=== PATIENT | male | born 1945 | race Caucasian/White ===

== ENCOUNTER 2017-03-18 00:10 | Inpatient (IN) | payer BC, MEDICARE ==
[2017-03-18] MEDS ORDERED: fentaNYL Citrate/PF 2,000 MCG in Sodium Chloride 0.9% 60 ML IV SCH (00:45)
[2017-03-18 00:57] LABS: Actual Bicarbonate (HCO3a) 20.2 mEq/L (22-26); Base Excess (BEa) -7.9 mEq/L (0 (+/-) 2.5); CO2 Tension 54.6 mmHg (35.0-45.0); Hematocrit-ABG 31.9 % (42.0-52.0); Hemoglobin (Hb) 9.4 g/dL (14.0-18.0); O2 Tension (PaO2) 297.3 mmHg (80.0-100.0)
[2017-03-18 00:58] LABS: Analyzer IN Cardio ER; Puncture Site RRA; pH, Arterial 7.19 (7.35-7.45)
[2017-03-18] MEDS ORDERED: Ondansetron HCl/PF 4 MG/2 ML Vial IVP PRN ×2 (02:41→03:59)
[2017-03-18] MEDS ORDERED: Ondansetron ODT 4 MG TAB SL PRN (02:41)
[2017-03-18] MEDS ORDERED: Sodium Chloride 0.9% 1,000 ML IV SCH (02:41)
[2017-03-18] MEDS: Norepinephrine 8 MG/250 ML BAG IVPB PRN ×5 (02:54→23:35)
[2017-03-18 02:59] LABS: Actual Bicarbonate (HCO3a) 18.4 mEq/L (22-26); Base Excess (BEa) -8.3 mEq/L (0 (+/-) 2.5); CO2 Tension 42.5 mmHg (35.0-45.0); Hematocrit-ABG 32.3 % (42.0-52.0); Hemoglobin (Hb) 9.5 g/dL (14.0-18.0); O2 Tension (PaO2) 100.6 mmHg (80.0-100.0)
[2017-03-18 03:03] LABS: Puncture Site RR; pH, Arterial 7.25 (7.35-7.45)
[2017-03-18 03:04] LABS: ALV-art Gradient 206.275 (0-20)
[2017-03-18] MEDS ORDERED: Acetaminophen 650 MG Suppository PR PRN (03:59)
[2017-03-18] MEDS ORDERED: hydrALAZINE 20 MG/ML VIAL SLOW IVP PRN (03:59)
[2017-03-18] MEDS ORDERED: cloNIDine 0.1 MG TAB PO PRN (03:59)
[2017-03-18] MEDS ORDERED: Ondansetron ODT 4 MG TAB PO PRN (03:59)
[2017-03-18] MEDS: Sodium Chloride 0.9% 1,000 ML IV SCH ×3 (05:29→19:36)
--- NOTE | 2017-03-18 06:05 | HP ---
DATE OF ADMISSION: 03/18/2017 PRIMARY CARE PROVIDER: Suze Foster M.D. CHIEF COMPLAINT: Cardiac arrest. HISTORY OF PRESENT ILLNESS: This is a 71-year-old male who presents to [facility] Emergency Department after apparently sustaining cardiac arrest at home. History is o btained after review of electronic medical record from the emergency room, discussions with the emerg ency room attending and family member reports. The patient apparently was noted with confusion and a ltered mentation by family members, last seen normal approximately 12:00 p.m. on 03/17/2017. The pat freddy's family noted the patient was lethargic and became unresponsive approximately 2100 hours on . EMS personnel were notified; at which point, the patient was found in the driveway unrespon sive with asystole. CPR was initiated. At which point, the patient went into pulseless electrical a ctivity then ventricular fibrillation, defibrillated in the field, intubated and given 3 cycles of ep inephrine and 3 cycles of sodium bicarbonate with return of spontaneous circulation. The patient req uired Levophed infusion after failed dopamine. Initial temperature in the emergency at 91 degrees Fa hrenheit. The patient received IV fentanyl infusion as well as continuation of Levophed infusion. PAST MEDICAL HISTORY: 1. Chronic pain syndrome, on chronic narcotic therapy. 2. Cervical lymphadenopathy. 3. History of chronic obstructive pulmonary disease. 4. Tobacco abuse. 5. Tonsillar neoplasm. 6. History of Helicobacter pylori. 7. Iron deficiency anemia. 8. Insomnia. 9. Chronic fatigue syndrome. 10. History of sleep apnea. 11. Gastroesophageal reflux disease. 12. Gastroparesis, unclear etiology. 13. Benign prostatic hyperplasia. 14. Chronic back pain. 15. Rheumatoid arthritis. PAST SURGICAL HISTORY: 1. Status post left wrist surgery. 2. Status post cervical spine surgery. 3. Status post spinal surgery. 4. Status post hernia repair. CURRENT MEDICATIONS: Based on previous admissions in 2016: 1. Orencia 125 mg subcutaneously every 7 days. 2. Nexium 20 mg 1 tab p.o. daily. 3. Gabapentin 300 mg 1 tab p.o. at bedtime. 4. Arava 20 mg p.o. daily. 5. Methylphenidate 10 mg p.o. b.i.d. 6. Reglan 10 mg p.o. t.i.d. 7. Remeron 15 mg p.o. at bedtime. 8. OxyContin 30 mg p.o. b.i.d. ALLERGIES: IODINE and CONTRAST MEDIA. FAMILY HISTORY: No inheritable diseases per report. SOCIAL HISTORY: The patient resides in [place], [place]. . Smokes up to half a pack to 1 pac k of cigarettes daily. No illicit drug use. No alcohol use. REVIEW OF SYSTEMS: Unobtainable as patient is on current mechanical ventilation and obtunded. PHYSICAL EXAMINATION: VITAL SIGNS: At the time of admission, blood pressure 80/51, pulse 96, respiratory rate 12, temperat ure 96.6 degrees rectally, and O2 saturation 100% on 40% FiO2. GENERAL APPEARANCE: This is a 71-year-old male on current mechanical ventilation, unrespon sive. HEENT: Pupils are pinpoint and minimally reactive to light and accommodation. No scleral icterus, n o conjunctival injection. Nares patent with nasogastric tube in place. OP with ET tube in place. NECK: Supple, no cervical adenopathy, no thyromegaly, no carotid bruits, no JVD appreciated. CHEST: Diminished breath sounds in the bases bilaterally. CARDIOVASCULAR: S1, S2 with distant heart sounds. ABDOMEN: Rounded with diminished bowel sounds in all four quadrants. No palpable mass. No rebound or guarding noted. EXTREMITIES: Warm and dry with fair turgor. No clubbing, cyanosis or asymmetric edema appreciated. Pulses palpable distally at the dorsalis pedis, posterior tibial, and popliteal arteries bilaterally . Capillary refill less than 2 seconds. NEUROLOGIC: Obtunded, unresponsive to painful stimuli on current sedation with fentanyl. GENITOURINARY: Blanton catheter in place with clear urine. PERTINENT LABORATORY DATA AND X-RAY FINDINGS: Sodium 138, potassium 5.0, chloride 104, CO2 of 20, BU N 17, creatinine 2.11, estimated GFR of 31, glucose 119, lactic acid level 5.2, calcium 8.0, AST 100, ALT 59, alkaline phosphatase 81, total CK 1486, troponin I ranged between 0.81 to 2.46. BNP 200. A lbumin 2.9. CBC showed a white blood cell count of 6.9, hemoglobin 7.9, hematocrit 27.4, platelet co unt 137 with 80% neutrophils. PT 15.8, INR 1.2, PTT of 40. ABG at 02:50 a.m. on 03/18/2017, showed a pH of 7.25, pCO2 of 42.5, pO2 of 100.6, bicarbonate 18.4, O2 saturation 97% on 50% FiO2. Urine manuela g screen dated 03/17/2017, positive for oxycodone. Plasma alcohol level less than 10. Portable chest x-ray dated 03/17/2017 showed endotracheal tube in appropriate positioning. Chronic c hanges in bilateral lung richards. CT imaging of the brain without contrast dated 03/18/2017 showed no acute intracranial process. EKG dated 03/18/2017 by my interpretation shows sinus mechanism with he art rates in the 90s. Normal R-wave progression noted in the precordial leads. Normal axis. No acu te ST-T wave changes appreciated. ASSESSMENT AND PLAN: 1. Cardiac arrest with return of spontaneous circulation. The patient will be admitted to the Criti joe Care Unit. We will continue general supportive measures. Consult Cardiology Service in the a.m. Monitor for evidence of arrhythmia. Continue serial troponin I evaluation. Consider 2D transthora cic echocardiogram when stabilizing. 2. Acute hypoxemic hypercapnic respiratory failure secondary to #1. Continue mechanical ventilation as stated previously. Consult Pulmonology Service for further ventilation management. 3. Hypotension. Suspect secondarily to #1. Continue Levophed infusion to maintain systolic greater than or equal to 90. 4. Acute kidney injury. Continue intravenous normal saline at 100 mL per hour. Avoid nephrotoxic a gents and contrast media. 5. Lactic acidosis. Suspect secondarily to #1. Repeat serial lactic acid level until stabilizing. 6. Transaminitis. Suspect hepatic shock after cardiac arrest. Continue to monitor serial LFT trend . 7. Rhabdomyolysis. Suspect secondary to CPR after cardiac arrest. Continue intravenous fluids and repeat total CK. 8. Acute on chronic normocytic anemia. Questionable gastrointestinal blood loss. Check stool guaia c. Continue serial H and H monitoring. Continue Pepcid 20 mg IV q.12 hours. 9. Prophylaxis. Sequential compression devices while in bed. Pepcid 20 mg IV q.12 hours. CCU elect rolyte replacement protocol. General sedation protocol. 10. Code status is FULL. Surrogate medical decision maker is patient's spouse.
[2017-03-18 06:11] LABS: Hemoglobin 9.3 g/dL (14.0-18.0); Platelet Count 181 thou/uL (130-400)
[2017-03-18 06:33] LABS: Lactic Acid 2.7 mmol/L (0.5-2.2)
[2017-03-18 07:15] LABS: Actual Bicarbonate (HCO3a) 16.8 mEq/L (22-26); Base Excess (BEa) -7.8 mEq/L (0 (+/-) 2.5); CO2 Tension 30.4 mmHg (35.0-45.0); Hematocrit-ABG 26.8 % (42.0-52.0); Hemoglobin (Hb) 7.5 g/dL (14.0-18.0); O2 Tension (PaO2) 83.1 mmHg (80.0-100.0); pH, Arterial 7.36 (7.35-7.45)
[2017-03-18 07:45] LABS: Puncture Site LRA
--- NOTE | 2017-03-18 08:18 | CT ---
PRELIMINARY REPORT/[facility]/EMERGENCY AFTER HOURS PROCEDURE: EXAM: CT Head Without Intravenous Contrast CLINICAL HISTORY: 71 years old, male; Signs and symptoms; Altered mental status/memory loss; Confusion or disorientatio n; Patient HX: AMS, rosc TECHNIQUE: Axial computed tomography images of the head/brain without intravenous contrast. COMPARISON: No relevant prior studies available. FINDINGS: Mildly limited due to streak artifact Brain: Mild volume loss. No hemorrhage. Mild white matter disease. No edema. Ventricles: Unremarkable. No ventriculomegaly. Bones/joints: Unremarkable. No acute fracture. Soft tissues: Unremarkable. Sinuses: Minimal mucosal thickening No acute sinusitis. Mastoid air cells: Question partial opacification of the right mastoid cavity versus hypoplasia. IMPRESSION: Question partial opacification of the right mastoid cavity. Correlate clinically No intracranial hemorrhage.Please see discussion above. Thank you for allowing us to participate in the care of your patient. Dictated and Authenticated by: Chaz Crews MD 03/18/2017 2:06 AM Central Time ([place] & [place]) FINAL REPORT CT BRAIN WITHOUT CONTRAST: COMPARISON: 12/02/2016 I agree with the preliminary report given by Dr. Chaz Crews of [facility]. No significant interval change is seen. POS: [facility]
[2017-03-18] MEDS ORDERED: Famotidine/PF 20 mg/2ml Vial SLOW IVP SCH ×2 (09:00)
[2017-03-18 09:31] LABS: Lactic Acid 2.6 mmol/L (0.5-2.2)
--- NOTE | 2017-03-18 10:40 | PDOC.PN ---
- Subjective Encounter Start Date: 03/18/17 Encounter Start Time: 10:38 Subjective: intubated,unresponsive - Objective Resuscitation Status: Resuscitation Status FULL:Full Resuscitation MAR Reviewed: Yes Vital Signs & Weight: Vital Signs (12 hours) Temp Pulse Resp BP BP Pulse Ox 03/18/17 10:00 47 H 03/18/17 09:00 98 F 03/18/17 08:00 98 F 90 37 H 100 03/18/17 07:00 98 F 03/18/17 06:59 101 H 131/79 03/18/17 03:55 97.9 F 97 16 100 03/18/17 03:05 97 03/18/17 03:00 97.9 F 03/18/17 02:57 97.9 F 96 24 H 111/77 98 Most Recent Monitor Data Heart Rate from ECG 92 NIBP 116/72 NIBP BP-Mean 84 Respiration from ECG 48 SpO2 100 I&O: 03/17/17 03/18/17 03/19/17 06:59 06:59 06:59 Intake Total 938 Output Total 15 35 Balance 923 -35 Result Diagrams: 03/18/17 06:00 Radiology Reviewed by me: Yes (cxr- ET tube, no infiltrate) EKG Reviewed by me: Yes (RSR< no STT abn) Phys Exam - Physical Examination Neck: no JVD diffuse rhonchi, coarse BS Cardiovascular: RRR, no significant murmur Gastrointestinal: soft, non-tender, positive bowel sounds Musculoskeletal: no edema Dx/Plan (1) Cardiac arrest Code(s): I46.9 - CARDIAC ARREST, CAUSE UNSPECIFIED Status: Acute (2) Encephalopathy Code(s): G93.40 - ENCEPHALOPATHY, UNSPECIFIED Status: Acute (3) Acute respiratory failure with hypercapnia Code(s): J96.02 - ACUTE RESPIRATORY FAILURE WITH HYPERCAPNIA Status: Acute (4) Acute renal failure Status: Acute (5) Lactic acidosis Code(s): E87.2 - ACIDOSIS Status: Acute (6) COPD (chronic obstructive pulmonary disease) Status: Acute (7) Chronic pain syndrome Code(s): G89.4 - CHRONIC PAIN SYNDROME Status: Acute - Plan on vent, pulmonollogy in consult -: nebs, fluids, pressure support * .
[2017-03-18] MEDS ORDERED: Diphenoxylate HCl/Atropine Tablet PO PRN (11:57)
[2017-03-18] MEDS ORDERED: Sodium Chloride 0.9% 500 ML IV SCH (12:00)
[2017-03-18 12:14] LABS: Hemoglobin 9.1 g/dL (14.0-18.0); Platelet Count 167 thou/uL (130-400)
[2017-03-18 12:57] VITALS: BMI 24.8
[2017-03-18] MEDS ORDERED: Albumin 5% 500 ML ONE (13:22)
--- NOTE | 2017-03-18 14:06 | CON ---
DATE OF CONSULTATION: 03/18/2017 CRITICAL CARE TIME: 60 minutes. REASON FOR CONSULTATION: Out of hospital arrest. HISTORY OF PRESENT ILLNESS: Mr. Small is a 71-year-old gentleman who recently had out of hospital arrest. The history was obtained from his family as well as review of the ER record as well as discu ssion with Dr. Swanson and review of EMS. Apparently Mr. Small was in normal state of health yeste rday. He was sleeping during the day. He had multiple comorbidities. His states she checked o n him at 5 p.m. and he was difficult to arouse. She then notified the daughter. She checked back on him at 7 p.m. and was still not arousable. The called Dr. Suze Foster who recommended she kartik ck his pupils. The states the pupils were fixed and small. EMS was then summoned. There was s ome notation that CPR began on the scene after noting asystole. The family states that CPR was not d one until he was in the ambulance. The initial rhythm strip is unknown, but felt to be asystole. He then developed respiratory distress and CPR ensued. There was also question of tracheal versus esop hageal intubation. Upon arrival to the emergency room, he did require continued CPR in addition to Levophed. His EKG di d not suggest an acute infarct. On my arrival, he is markedly hypotensive in the 70s. He was placed back on the norepinephrine. He also has blood from his NG tube in addition to melena. He has a history of diverticulitis. PAST MEDICAL HISTORY: COPD, tobacco abuse, iron deficiency anemia, sleep apnea, acid reflux, BPH, ch ronic back pain, osteoarthritis, cervical lymphadenopathy and rheumatoid arthritis. PAST SURGICAL HISTORY: Wrist surgery. MEDICATIONS: Include gabapentin, Nexium, Orencia, Arava, Reglan, Remeron, OxyContin. ALLERGIES: IODINE. FAMILY HISTORY: Negative. SOCIAL HISTORY: No current alcohol use. He is currently . He does smoke 1 pack per day. REVIEW OF SYSTEMS: Unobtainable. PHYSICAL EXAMINATION: VITAL SIGNS: Blood pressure 97/62, pulse 103, respirations 45 on ventilator. GENERAL: Patient is not awakened to stimuli. He is over-breathing in the vent. NEUROLOGIC: The patient is alert and oriented times 3 with no focal neurologic deficits. HEENT: Sclerae without icterus. Mouth has moist mucous membranes with normal pallor. NECK: No JVD. Carotid upstroke brisk. No bruits bilaterally. LUNGS: Clear to auscultation with unlabored respirations. BACK: No scoliosis or kyphosis. CARDIAC: Regular rate and rhythm with normal S1 and S2. No S3 or S4 noted. No significant rubs, mu rmurs, thrills, or gallops noted throughout the precordium. PMI is not displaced. There is no saurabh ternal heave. ABDOMEN: Soft, nontender, nondistended. No peritoneal signs present. No hepatosplenomegaly. No abnormal striae. EXTREMITIES: 2+ femoral and 2+ dorsalis pedis pulses. No cyanosis, clubbing, or edema. SKIN: No gross abnormalities. PERTINENT LABS: CO2 20, creatinine 2.1. CK-MB of 46, troponin 2.4, BNP of 199. TSH 2.9. Hemoglobin 9.1. EKG normal sinus rhythm with nonspecific ST-T wave changes, no acute changes noted. IMPRESSION: 1. Out of hospital arrest. 2. Anoxic brain injury. 3. Acute renal insufficiency. 4. Melena and hematochezia. RECOMMENDATIONS: I had a long discussion with the family about his current cardiac status. His hear t rate appears stable. He is markedly hypotensive and may be related to recent anoxic brain injury. His echo is pending. GI has been consulted. At this point, would recommend review of the echo. I would not recommend aggressive CV approach given likely marked anoxic brain injury. Family agrees. They are not interested on any heroic measures. No further compressions per the family's request. Ne urology has been consulted. EEG has also been recommended. I did state his prognosis is extremely p oor based on the above.
[2017-03-18] MEDS: Acetaminophen 650 MG in Premix Bag 1 BAG IVPB PRN (15:31)
[2017-03-18 16:03] LABS: Hemoglobin 8.7 g/dL (14.0-18.0); Platelet Count 148 thou/uL (130-400)
[2017-03-18 16:05] LABS: Platelet Count 148 thou/uL (130-400)
[2017-03-18] MEDS: Cefepime 1 GM, Admixture Fee 1 EACH in Sterile Water 10 ML SLOW IVP SCH (16:07)
[2017-03-18 16:20] LABS: Fibrinogen 640 mg/dL (253-463); INR-International Normal Ratio 1.5; Prothrombin Time 18.8 SEC (12.0-14.7)
[2017-03-18 16:26] LABS: ALT (SGPT) 322 U/L (8-55); AST (SGOT) 586 U/L (5-34); Albumin 3.2 g/dL (3.4-4.8); Alkaline Phosphatase 69 U/L (40-150); Anion Gap 18 mmol/L (10-20); BUN (Urea Nitrogen) 45 mg/dL (8.4-25.7); Bilirubin, Total 0.6 mg/dL (0.2-1.2); Calc. Creatinine Clearance 22 mL/min (70-130); Calcium 7.2 mg/dL (7.8-10.44); Carbon Dioxide 15 mmol/L (23-31); Chloride 109 mmol/L (98-107); Estimated GFR-MDRD 17; Globulin 2.3 g/dL (2.4-3.5); Glucose 100 mg/dL (83-110); Potassium 4.4 mmol/L (3.5-5.1); Protein, Total 5.5 g/dL (5.8-8.1); Sodium 138 mmol/L (136-145)
[2017-03-18 16:48] LABS: D-Dimer Test Greater than 20.00 *mcg/mL (0.27-0.43)
[2017-03-18 16:58] LABS: FSP-Qualitative ABNORMAL (Normal); FSP-Semiquantitative >=40 & <80 mcg/mL (Less than 5)
--- NOTE | 2017-03-18 18:15 | CON ---
DATE OF CONSULTATION: 03/18/2017 HISTORY OF PRESENT ILLNESS: Mr. Gonsalo Small is a 71-year-old gentleman, intubated on the vent, sta tus post PEA, CPR done in [place] and brought to [facility]. Extensive history was obtained from talking to his who is at the bedside. I reviewed his entire medical records extensively with his and family members, three daughters. Last time, patient e ncountered any verbal communication with his was 12:30 p.m. yesterday. He was home at 5 o'clock and apparently fallen asleep, did not wake him up, did not do any additional talking. At 7 o'clock she came back again he was basically sleeping, shallow respiration, contacted primary care physician who told to call EMS. Upon arrival, apparently in the ambulance, he had pulseless electrical activit y. CPR was initiated. He was intubated and transferred to the [place] ER where apparently CPR in [facility] and transferred to [facility] here. I am told about 11 o'clock last night. He has been in the ICU since 2 o'clock in the morning. He normally smokes up to a pack a day, past history of 2-3 pack a day smoker. He has low flow O2 at home. He has nebulizer machine at home. He has avalos itation with activity, but does do walk in the yard. In the past, he was a construction safety consultant. He has had no recent history of any chest pain. He had recent CAT scan done of his head for headache , which is otherwise unremarkable. PAST MEDICAL HISTORY: Pertinent for: 1. COPD. 2. History of tonsillar cancer, status post radiation, status post surgery. 3. History of Clostridium difficile colitis in 2015, hospitalized at [facility]. Antibiotics related. 4. History of sleep apnea. 5. Diabetes. 6. Gastroparesis. 7. History of diverticulitis. 8. Chronic back pain. 9. BPH. 10. Hyperlipidemia. PAST SURGICAL HISTORY: Surgeries are multiple; left wrist surgery, neck surgery, spinal surgery, her abigail operation, endoscopy. SOCIAL/FAMILY HISTORY: History of previous alcohol abuse. 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 ALLERGIES: IODINE. MEDICATIONS: His list of medicine from home - OxyContin 30 b.i.d., Zofran, Remeron 15, Reglan 10, m ethylphenidate 10 twice a day, Arava 20 daily, gabapentin 300, Nexium, Orencia 125. REVIEW OF SYSTEMS: Otherwise unobtainable. PHYSICAL EXAMINATION: VITAL SIGNS: Pulse 89, blood pressure 110/73, sats are 100%, respirations are in the 50s. He is on no sedation. His I's and O's have been 942 in and 115 out. HEENT: Pupils are pinpoint. CHEST: Decreased breath sounds, no wheezing. CARDIAC: Normal S1, S2. No gallops. ABDOMEN: Soft. No masses. LABORATORY DATA AND X-RAY FINDINGS: His pO2 was 83, pCO2 30, pH 7.36, on a rate of 16, 40%, 600 tida l volume, decreased tidal volume to 500. His CK-MB is 46. Troponin is 2.45. BNP is 99. Chest x-ra y was normal. CT head was unremarkable. He is now on IV fluids 100 an hour. He is on Pepcid. We will start Lovenox, continue vent support. IMPRESSION: 1. Status post cardiopulmonary arrest. 2. Anoxic injury. 3. Rheumatoid arthritis. 4. Chronic obstructive pulmonary disease. 5. Sleep apnea. 6. History of tonsillar cancer. 7. Unknown GI problems with previous Clostridium difficile. PLAN: Neurology has been consulted. Continue vent support. I told the , we will give to assess the neurological status. If there is no improvement, prognosis would be poor. Otherwise, basic supportive care. We will follow. This is a 45 minute critical care time spent extensively with the patient at bedside , discussed with the patient and family.
[2017-03-18] MEDS: Pantoprazole 40 MG VIAL IVP SCH (20:08)
[2017-03-18] MEDS ORDERED: Cefepime 1 GM in Sodium Chloride 0.9% 100 ML IVPB SCH (21:00)
[2017-03-18] MEDS ORDERED: Enoxaparin Sodium 40 MG/0.4 ML SYRINGE SC SCH (21:00)
--- NOTE | 2017-03-18 23:39 | CON ---
DATE OF CONSULTATION: 03/18/2017 NEUROLOGY CONSULTATION IMPRESSION: Anoxic brain injury with burst suppression pattern suggesting a poor prognosis. PLAN: As per the family's wishes. Mr. Small is a 71-year-old gentleman with a past history of hyp erlipidemia, COPD, sleep apnea, anemia who had a cardiac arrest in his driveway. EMS was called and he was transported here after several efforts they did, regain a rhythm. The patient has remained on ventilatory support. He does breathe over the ventilator, the nurse reports some coughing secondary to the tube. He has failed to regain awareness. An EEG was done just prior to my examination, whic h showed evidence of a burst suppression pattern. PAST MEDICAL HISTORY: As listed above. ALLERGIES: IODINE. SOCIAL HISTORY: Unremarkable. FAMILY HISTORY: Unremarkable. REVIEW OF SYSTEMS: Not obtainable. PHYSICAL EXAMINATION: VITAL SIGNS: Pulse 106, blood pressure 118/66 with Levophed, respirations 44, he is orally intubated . HEENT: Pupils are pinpoint, nonreactive. Doll's head maneuver produced a conjugate deviation. He h as some spontaneous over mouth movements. EXTREMITIES: No spontaneous extremity movements were noted. CT scan of the brain was unremarkable. SUMMARY: This gentleman's prognosis appears poor. The family is trying to make a decision as to how long to maintain support. He has been made DNR. I agree with the care.
[2017-03-19] MEDS: Acetaminophen 650 MG in Premix Bag 1 BAG IVPB PRN ×2 (01:42→12:01)
[2017-03-19] MEDS: Cefepime 1 GM, Admixture Fee 1 EACH in Sterile Water 10 ML SLOW IVP SCH (03:26)
[2017-03-19] MEDS: Norepinephrine 8 MG/250 ML BAG IVPB PRN ×3 (03:32→13:37)
[2017-03-19] MEDS: Sodium Chloride 0.9% 1,000 ML IV SCH (03:32)
--- NOTE | 2017-03-19 08:34 | RAD ---
PORTABLE CHEST ONE VIEW: 03/19/2017 at 4:41 a.m. HISTORY: Respiratory failure. FINDINGS/IMPRESSION: Comparison is made with the exam of the previous day. Endotracheal and nasogastric tubes remain in place. The heart size is normal. The lungs are expande d without confluent areas of consolidation, pneumothorax, patricia pleural edema, or pleural effusions. POS: [facility]
[2017-03-19] MEDS ORDERED: Pantoprazole 40 MG VIAL IVP SCH (09:00)
[2017-03-19] MEDS ORDERED: FLU VACC TS2017-18 (>65YR) 0.5 ML SYRINGE IM ONE (09:00)
[2017-03-19] MEDS: Pantoprazole 40 MG VIAL IVP SCH (09:47)
--- NOTE | 2017-03-19 11:37 | PRG ---
DATE OF SERVICE: 03/19/2017 35 minutes critical care time. SUBJECTIVE: The patient remains intubated on mechanical ventilation. Family members at the bedside. PHYSICAL EXAMINATION: VITAL SIGNS: Temperature 100.0, pulse 99, blood pressure 122/66, respiratory rate 37, O2 sat 100%. Total intake for 24 hours 4159, output 3985. NEUROLOGIC: The patient cannot follow commands. He is areflexic from the neck downward. He still h as some spontaneous respirations. He will occasionally flutter his eyes open. His pupils are 1 mm u nreactive bilaterally. HEENT: Otherwise unremarkable, endotracheal tube in place. NECK: No JVD. LUNGS: Coarse rhonchi. CARDIOVASCULAR: S1 and S2, tachycardic. ABDOMEN: Soft, no hepatosplenomegaly. EXTREMITIES: No edema. His chest x-ray shows some mild hyperinflation, endotracheal tube is in proper position. LABORATORY DATA: Sodium 138, potassium 4.4, CO2 of 15, BUN 45, creatinine 3.5, glucose 100 that was obtained yesterday. ASSESSMENT: 1. Severe anoxic brain injury, status post cardiopulmonary arrest. 2. Rheumatoid arthritis. 3. History of chronic obstructive pulmonary disease. 4. Sleep apnea. 5. History of tonsillar cancer. PLAN: He apparently has burst suppression activity on his EEG and is not considered a good prognosti c factor for survival. The family seems fairly realistic and is probably going to withdraw care late r today. For the time being, we will make obtained the patient on mechanical ventilation, antibiotic s, and norepinephrine drip for hypotension, it is likely he looks prior quickly after those things ar e removed. I do not see any utility and checking lab test as the patient's prognosis for survival is dismal.
--- NOTE | 2017-03-19 13:42 | PDOC.PN ---
- Subjective Encounter Start Date: 03/19/17 Encounter Start Time: 09:00 Pt seen for followup re: cardiac arrest. Intubated, nonverbal. - Objective Resuscitation Status: Resuscitation Status DNR:Do Not Resuscitate MAR Reviewed: Yes Vital Signs & Weight: Vital Signs (12 hours) Temp Pulse Resp BP Pulse Ox 03/19/17 12:00 102 F H 38 H 03/19/17 11:08 97 129/66 03/19/17 10:00 42 H 03/19/17 08:00 100 F H 97 38 H 99 03/19/17 06:46 103 H 115/66 03/19/17 06:00 38 H 03/19/17 04:00 99.9 F H 03/19/17 03:34 44 H 03/19/17 02:41 107 H 03/19/17 02:00 41 H Weight Admit Weight 173 lb Weight 173 lb 1.006 oz Most Recent Monitor Data Heart Rate from ECG 97 NIBP 130/69 NIBP BP-Mean 89 Respiration from ECG 37 SpO2 99 I&O: 03/18/17 03/19/17 03/20/17 06:59 06:59 06:59 Intake Total 938 4159 Output Total 15 3985 210 Balance 923 174 -210 Result Diagrams: 03/18/17 15:58 03/18/17 15:58 EKG Reviewed by me: Yes (Tele: NSR) Phys Exam - Physical Examination Intubated ETT, pupils 2mm jeannette, nonreactive Respiratory: clear to auscultation bilateral Cardiovascular: RRR Gastrointestinal: soft No spontaneous limb movements Skin: no rash Dx/Plan (1) Cardiac arrest Code(s): I46.9 - CARDIAC ARREST, CAUSE UNSPECIFIED Status: Acute (2) Acute renal failure Status: Acute (3) Acute respiratory failure with hypercapnia Code(s): J96.02 - ACUTE RESPIRATORY FAILURE WITH HYPERCAPNIA Status: Acute (4) Chronic pain syndrome Code(s): G89.4 - CHRONIC PAIN SYNDROME Status: Chronic - Plan plan discussed w/ family * . Family awaiting pt's sister to come from [place]. likely withdrawal of aggressive care today. Review of Systems - Medications/Allergies Allergies/Adverse Reactions: Allergies Allergy/AdvReac Type Severity Reaction Status Date / Time Iodinated Contrast- Oral and Allergy "big bumps Verified 05/18/16 12:28 IV Dye on my [Iodinated Contrast Media - head" IV Dye] "heart fluttered" Medications: Current Medications Acetaminophen (Tylenol) 650 mg HI Q4H PRN PRN Reason: Headache/Fever or Mild Pain Clonidine (Catapres) 0.1 mg PO Q4H PRN PRN Reason: Systolic BP > 180 Diphenoxylate HCl/Atropine (Lomotil) 2 tab PO QIDPRN PRN PRN Reason: Diarrhea/Loose Stools Enoxaparin Sodium (Lovenox) 30 mg SC 2100 [facility] Hydralazine HCl (Apresoline) 10 mg SLOW IVP Q4H PRN PRN Reason: Systolic BP > 180 Fentanyl Citrate 2,000 mcg/ (Sodium Chloride) 100 mls @ 0 mls/hr IV INF THIERNO PRN Reason: As Directed Sodium Chloride (Normal Saline 0.9%) 1,000 mls @ 100 mls/hr IV .Q10H [facility] Last Admin: 03/19/17 03:32 Dose: 1,000 mls Acetaminophen 650 mg/ Device 65 mls @ 400 mls/hr IVPB Q6H PRN PRN Reason: Fever > 101 Stop: 03/19/17 15:09 Last Admin: 03/19/17 12:01 Dose: 65 mls Norepinephrine Bitartrate (Levophed) 250 mls @ 0 mls/hr IVPB INF PRN; Protocol ; Titrate PRN Reason: Blood Pressure Last Admin: 03/19/17 13:37 Dose: 250 mls Cefepime HCl 1 gm/Miscellaneous Medication 1 each/ Sterile Water 10 mls @ 120 mls/hr SLOW IVP 0400 [facility] Ondansetron HCl (Zofran Odt) 4 mg PO Q6H PRN PRN Reason: Nausea/Vomiting Ondansetron HCl (Zofran) 4 mg IVP Q6H PRN PRN Reason: Nausea/Vomiting Pantoprazole Sodium (Protonix) 40 mg IVP BID [facility] Last Admin: 03/19/17 09:47 Dose: 40 mg Sodium Chloride (Flush - Normal Saline) 10 ml IVF Q12HR [facility] Last Admin: 03/19/17 09:48 Dose: 10 ml Sodium Chloride (Flush - Normal Saline) 10 ml IVF PRN PRN PRN Reason: Saline Flush
[2017-03-19] MEDS ORDERED: Morphine 4 MG/ML VIAL SLOW IVP PRN (15:59)
[2017-03-19 16:22] VITALS: BP 104/59
[2017-03-19 16:34] VITALS: TEMP 101.1
--- NOTE | 2017-03-19 16:54 | RAD ---
PORTABLE CHEST: HISTORY: Intubation. COMPARISON: 03/17/2017 FINDINGS: Endotracheal tube is in satisfactory position. There has been placement of an NG tube. The tip of t he tube is in the fundus region of the stomach. The sidehole would still be within the distal esopha lisa and should be advanced for more optimal placement. The lungs are clear of infiltrates. There is slight elevation of the right hemidiaphragm. IMPRESSION: 1. Endotracheal tube in satisfactory position. 2. Nasogastric tube with the tip near the fundus or gastroesophageal junction region of the stomach should be advanced for more optimal placement. POS: BRYANT
[2017-03-19] MEDS ORDERED: Enoxaparin Sodium 30 MG/0.3 ML SYRINGE SC SCH (21:00)
[2017-03-20] MEDS ORDERED: Cefepime 1 GM, Admixture Fee 1 EACH in Sterile Water 10 ML SLOW IVP SCH (04:00)
--- NOTE | 2017-03-20 15:29 | DS ---
DATE OF ADMISSION: 03/18/2017 DATE OF : 03/19/2017 PRIMARY CARE PHYSICIAN: Dr. Suze Foster. DISCHARGE DIAGNOSES: 1. Cardiac arrest. 2. Severe anoxic brain injury. HOSPITAL COURSE: Mr. Small is a 71-year-old gentleman, who was admitted to [facility] on 03/18/2017 for cardiac arrest following return of spontaneous circulation after cardiop ulmonary resuscitation. He was seen by Pulmonology, Cardiology and Neurology services. He was intub ated and mechanically ventilated. After discussion with family, goals of care were changed to comfor t measures only. After the patient's family was able to come from out of town, he had withdrawal of active care and on the evening of 03/19/2017. He had an EEG, which showed anoxic brain injury with burst suppression pattern suggesting poor progno sis. Many thanks for allowing me to participate in your patient's care. Please feel free to contact me wi th any questions or concerns.
--- NOTE | 2017-03-23 10:58 | EEG ---
Referring Physician: Ren GARCIA EEG # [id number] TEST TYPE: ROUTINE PORTABLE INPATIENT REPORT: AN EEG USING THE [employer] TEN-TWENTY SYSTEM OF ELECTRODE PLACEMENT WAS PERFORMED. The background activity consists of severe diffuse slowing and suppression over both hemispheres with intermittent bursts of high amplitude dysrhythmic activity. Photic stimulation was unremarkable. IMPRESSION: THIS EEG IS CONSISTENT WITH A BURST-SUPPRESSION PATTERN CARRYING A POOR PROGNOSIS FOR RECOVERY. Packing House Laborer: ADRIANA Silver Wrapper: [email or web address]
--- NOTE | 2017-04-09 14:23 | EKG ---
Test Reason : ROSC Blood Pressure : / mmHG Vent. Rate : 094 BPM Atrial Rate : 094 BPM P-R Int : 146 ms QRS Dur : 092 ms QT Int : 368 ms P-R-T Axes : 082 038 081 degrees QTc Int : 460 ms Normal sinus rhythm Nonspecific T wave abnormality Inverted T wave Abnormal ECG Confirmed by KORTNEY RUSSELL, BRITTANY ([id number]), manuscript editor SUKUMAR HAYES ([id number]) on 04/09/2017 2:22:56 PM Referred By: Confirmed By:BRITTANY SHEETS MD
== END 2017-03-19 18:52 | disposition expired | DRG 296 ==
LOC: ERS 00:10 → CCU 02:50
PROVIDERS: ADMIT Family Medicine; ATTEND Family Medicine
PROC: 5A1945Z Respiratory Ventilation, 24-96 Consecutive Hours (ICD-10-PCS; principal; 2017-03-18)
PROC: 06HY33Z Insertion of Infusion Device into Lower Vein, Percutaneous Approach (ICD-10-PCS; 2017-03-18)
DX: I46.9 Cardiac arrest, cause unspecified (principal); J96.01 Acute respiratory failure with hypoxia; N17.9 Acute kidney failure, unspecified; G93.1 Anoxic brain damage, not elsewhere classified; I95.9 Hypotension, unspecified; E87.2 Acidosis; J44.9 Chronic obstructive pulmonary disease, unspecified; J96.02 Acute respiratory failure with hypercapnia; M62.82 Rhabdomyolysis; D64.9 Anemia, unspecified; K92.1 Melena; K21.9 Gastro-esophageal reflux disease without esophagitis; F17.210 Nicotine dependence, cigarettes, uncomplicated; I49.01 Ventricular fibrillation; I10 Essential (primary) hypertension; G47.30 Sleep apnea, unspecified; G89.4 Chronic pain syndrome; N28.9 Disorder of kidney and ureter, unspecified; R74.0 Nonspecific elevation of levels of transaminase and lactic acid dehydrogenase [LDH]; Z91.041 Radiographic dye allergy status; Z91.09 Other allergy status, other than to drugs and biological substances; Z85.818 Personal history of malignant neoplasm of other sites of lip, oral cavity, and pharynx; Z66 Do not resuscitate; Z51.5 Encounter for palliative care
CPT/HCPCS: 36556; 70450; 71010; 80053; 82274; 82805; 83605; 85014; 85018; 85049; 85300; 85362; 85379; 85384; 85610; 85730; 87324; 87449; 93005; 93306; 94002; 94003; 95816; 95819; 96365; 96366; 96368; 99292; A4216; C9113; J0131; J0692; J2270; J3010; J7050; P9045; S0028